=== PATIENT | female | born 1990 | race Caucasian/White ===

== ENCOUNTER 2021-01-31 11:25 | Outpatient (CLI) | payer MEDICAID, OTHER ==
[~2021-01-31] VITALS: Ht 170.2 cm; Wt 109.1 kg
[~2021-01-31 11:25] MED LIST: ACET325T14 PO; DOCU-131 PO; IBUP-1222 PO; OXYC1TAB14 PO; PREN1TAB27 PO
[2021-01-31 12:08] LABS: MICROSCOPIC INDICATED
[2021-01-31 13:21] LABS: MICROSCOPIC AUTO
[2021-01-31] MEDS ORDERED: OMEP-376 PO (13:48)
== END 2021-01-31 13:50 | disposition home or self-care (01) ==
LOC: LDOP 11:25
PROVIDERS: ATTEND Obstetrics & Gynecology
DX: O26.893 Other specified pregnancy related conditions, third trimester (principal); R10.9 Unspecified abdominal pain; Z3A.38 38 weeks gestation of pregnancy
CPT/HCPCS: 59025; 81001; 87086

== ENCOUNTER 2021-02-06 03:13 | Outpatient (CLI) | payer OTHER, MEDICAID ==
[~2021-02-06 03:13] MED LIST changes: +OMEP-376 PO
[2021-02-06 03:26] VITALS: BP 124/76
[2021-02-06 04:22] LABS: MICROSCOPIC INDICATED
== END 2021-02-06 03:44 | disposition home or self-care (01) ==
LOC: LDOP 03:13
PROVIDERS: ATTEND Obstetrics & Gynecology
DX: O26.893 Other specified pregnancy related conditions, third trimester (principal); R10.9 Unspecified abdominal pain; Z3A.39 39 weeks gestation of pregnancy
CPT/HCPCS: 59025; 81001; 87086

== ENCOUNTER 2021-02-08 13:42 | Inpatient (IN) | payer OTHER, MEDICAID ==
[~2021-02-08] VITALS: Ht 170.2 cm; Wt 110.9 kg
[2021-02-13] MEDS ORDERED: OXYTOCIN 30U/ 0.9% NaCL 500ML 500 ML IV ONE (09:00)
[2021-02-13] MEDS ORDERED: TERBUTALINE 1 MG/ML, 1ML SQ PRN (09:00)
[2021-02-13] MEDS ORDERED: TERBUTALINE 1 MG/ML, 1ML IVPush PRN (09:00)
[2021-02-13] MEDS ORDERED: FENTANYL PF 100 MCG/2ML IV PRN (09:00)
[2021-02-13] MEDS ORDERED: PLEASE ENTER HEIGHT AND WEIGHT MC SCH (09:00)
[2021-02-13] MEDS ORDERED: MISOPROSTOL 200 MCG TABLET PR PRN ×2 (09:00→18:30)
[2021-02-13] MEDS ORDERED: OXYTOCIN 30U/ 0.9% NaCL 500ML 500 ML IV PRN (09:00)
[2021-02-13] MEDS ORDERED: FENTANYL PF 100 MCG/2ML IVPush PRN (09:00)
[2021-02-13] MEDS ORDERED: NEWBORN KIT ONE (09:06)
[2021-02-13 09:20] LABS: BASOPHILS % (AUTO) 0 % (0-1); EOSINOPHILS % (AUTO) 1 % (1-7); LYMPHOCYTES % (AUTO) 20 % (22-44); MEAN CORPUSCULAR HEMOGLOBIN 28.4 pg (27.0-34.8); MEAN CORPUSCULAR HGB CONC 33.7 g/dL (32.4-35.8); MEAN PLATELET VOLUME 8.7 fL (7.4-10.4); MONOCYTES % (AUTO) 7 % (2-9); NEUTROPHILS % (AUTO) 72 % (42-75); PLATELET COUNT 235 x10^3/uL (130-400); RED BLOOD COUNT 4.55 x10^6/uL (3.82-5.3); RED CELL DISTRIBUTION WIDTH 14.3 % (9.6-15.2)
[2021-02-13 09:29] VITALS: BP 136/86
[2021-02-13] MEDS ORDERED: LACTATED RINGERS 1,000 ML IV SCH ×4 (09:30→14:30)
[2021-02-13] MEDS ORDERED: FENTANYL/BUPIV./NS/PF 250 ML EPIDCONT ONE (12:32)
[2021-02-13] MEDS ORDERED: LIDOCAINE/PF 1.5% EPI 1:200K, 10 ML ONE (12:32)
[2021-02-13] MEDS ORDERED: LACTATED RINGERS 1,000 ML IVBOLUS PRN ×2 (14:00→14:30)
[2021-02-13] MEDS ORDERED: EPHEDRINE 50 MG/ML, 1ML IVPush PRN ×2 (14:00→14:30)
[2021-02-13] MEDS ORDERED: FENTANYL/BUPIV./NS/PF 250 ML EPIDCONT SCH ×2 (14:00→14:30)
[2021-02-13] MEDS ORDERED: NALOXONE 0.4 MG/ML, 1ML IVPush PRN (14:30)
[2021-02-13] MEDS ORDERED: DOCUSATE 100 MG CAPSULE PO PRN (18:30)
[2021-02-13] MEDS ORDERED: OXYTOCIN 10 UNITS/ML, 1ML IM PRN (18:30)
[2021-02-13] MEDS ORDERED: SIMETHICONE 80 MG CHEW TAB PO PRN (18:30)
[2021-02-13] MEDS ORDERED: ONDANSETRON 2MG/ML, 2ML IV PRN (18:30)
[2021-02-13] MEDS ORDERED: METHYLERGONOVINE 0.2 MG/ML IM PRN (18:30)
[2021-02-13] MEDS: OXYTOCIN 30U/ 0.9% NaCL 500ML 500 ML IV SCH (18:30)
[2021-02-13] MEDS ORDERED: ACETAMINOPHEN 325 MG TABLET PO PRN (18:30)
[2021-02-13] MEDS ORDERED: CARBOPROST TROMETHAMINE 250 MCG/ML, 1ML IM PRN (18:30)
[2021-02-13] MEDS ORDERED: HYDROcodone/APAP 5/325 TABLET PO PRN ×2 (18:30)
[2021-02-13] MEDS: IBUPROFEN 600 MG TABLET PO PRN (19:33)
[2021-02-13 20:30] VITALS: BP 115/73
[2021-02-14 00:20] VITALS: BP 115/75
[2021-02-14 02:14] LABS: BASOPHILS % (AUTO) 0 % (0-1); EOSINOPHILS % (AUTO) 0 % (1-7); LYMPHOCYTES % (AUTO) 10 % (22-44); MEAN CORPUSCULAR HEMOGLOBIN 28.7 pg (27.0-34.8); MEAN PLATELET VOLUME 8.7 fL (7.4-10.4); MONOCYTES % (AUTO) 7 % (2-9); NEUTROPHILS % (AUTO) 82 % (42-75); PLATELET COUNT 182 x10^3/uL (130-400); RED BLOOD COUNT 4.09 x10^6/uL (3.82-5.3); RED CELL DISTRIBUTION WIDTH 14.2 % (9.6-15.2)
[2021-02-14 04:30] VITALS: BP 110/72
[2021-02-14] MEDS: OXYTOCIN 30U/ 0.9% NaCL 500ML 500 ML IV SCH ×2 (04:30→14:30)
[2021-02-14] MEDS: IBUPROFEN 600 MG TABLET PO PRN ×3 (05:22→20:45)
[2021-02-14 07:51] VITALS: BP 108/75
[2021-02-14] MEDS ORDERED: PRENATAL VIT/IRON/FA 1 EACH TABLET PO SCH (09:00)
[2021-02-14 12:08] VITALS: BP 114/76
[2021-02-14] MEDS ORDERED: IBUP-1222 PO (13:09)
[2021-02-14] MEDS ORDERED: SENN-52 PO (13:09)
[2021-02-14] MEDS ORDERED: HYDR-2214 PO (13:10)
[2021-02-14 15:46] VITALS: BP 115/73
[2021-02-14] MEDS ORDERED: DIPH,PERTUSS(ACELL),TET VAC/PF NC IM-VACC ONE (16:56)
[2021-02-14 20:00] VITALS: BP 113/71
== END 2021-02-14 22:40 | disposition home or self-care (01) | DRG 807 ==
LOC: LDIP 02-13 08:19 → 2NW 02-13 20:05
PROVIDERS: ADMIT Obstetrics & Gynecology; ATTEND Obstetrics & Gynecology
PROC: 10E0XZZ Delivery of Products of Conception, External Approach (ICD-10-PCS; principal; 2021-02-13)
PROC: 3E0R3BZ Introduction of Anesthetic Agent into Spinal Canal, Percutaneous Approach (ICD-10-PCS; 2021-02-13)
PROC: 00HU33Z Insertion of Infusion Device into Spinal Canal, Percutaneous Approach (ICD-10-PCS; 2021-02-13)
PROC: 10H07YZ Insertion of Other Device into Products of Conception, Via Natural or Artificial Opening (ICD-10-PCS; 2021-02-13)
PROC: 0HQ9XZZ Repair Perineum Skin, External Approach (ICD-10-PCS; 2021-02-13)
DX: O48.0 Post-term pregnancy (principal); Z37.0 Single live birth; Z3A.40 40 weeks gestation of pregnancy; Z87.440 Personal history of urinary (tract) infections; Z20.822 Contact with and (suspected) exposure to COVID-19; O70.0 First degree perineal laceration during delivery
CPT/HCPCS: 36415; 85025; 86592; 86850; 86900; 87635; G0378; J2590; J7120